=== PATIENT | female | born 1960 | race Two or more races ===

== ENCOUNTER 2017-05-15 15:14 | Emergency (ER) | payer OTHER ==
--- NOTE | 2017-05-15 15:35 | EDPHY ---
HPI/HX/ROS/PE/MDM Narrative: CHIEF COMPLAINT: Headache HPI: The patient is a 57 y/o female complaining of a consistent headache for 2 months. She saw her primary care provider, Dr. Worley, in [place] regarding the headache, but only had blood work performed. The headache has been consistent every day, but she occasionally wakes up without a headache. However, as the day progresses the headache returns and worsens. It also migrates between the right and left side of her head. Took Excedrin, ibuprofen, and aspirin without any relief. She has not taken any prescription medications for her headache. Denies vision changes, weakness or numbness in extremities, or other pertinent symptoms. REVIEW OF SYSTEMS: Aside from elements discussed in the HPI, a comprehensive 10-point review of systems was reviewed and is negative. PMH: Denies SOCIAL HISTORY: Lives in [place], works as a contracts paralegal, PHYSICAL EXAM: General:Patient is alert, in no acute distress. ENT:Eyes are normal to inspection. ENT inspection normal. Neck: Normal inspection. Full range of motion. Respiratory:No respiratory distress. Breath sounds normal bilaterally. Cardiovascular: Regular rate and rhythm. Strong peripheral pulses. Normal cap refill. Abdomen:The abdomen is nontender to palpation. There are no peritoneal signs. There are normal bowel sounds. Back: Normal to inspection. No tenderness to palpation. Skin: Normal color. No rash. Warm and dry. Extremities: Normal appearance. Full range of motion. Neuro: Oriented x3. Normal motor function. Normal sensory function. No pronator drift. ED Course: 1638: Spoke with Dr. Pedro, radiologist, he reports the patient has a negative head CT. 1639: Reassessed patient and discussed imaging findings. Patient is now asymptomatic after treatment with IVNS, Reglan, Benadryl and Toradol. Neuro exam remains normal. The etiology of her headaches is unclear, but patient is safe for further outpatient workup. Return precautions provided; patient is comfortable with this plan. MDM: This patient presents with intermittent headache over the last two months. There is no description of sudden onset or severity to suggest SAH. She has no infectious symptoms to suggest meningitis. A CTH was performed and is negative for CVA, tumor, bleed. I think the patient is safe for further outpatient workup and she is comfortable with this plan. She got significant relief from anti-migraine meds here in the ED. We discussed strict return precautions. - Data Points Imaging: Discussed imaging studies w/ connie cleaner Radiologist, I viewed and interpreted images myself Laboratory Results: Laboratory Results 05/15/17 15:50 05/15/17 15:50 05/15/17 05/15/17 15:50 15:50 WBC 6.24 10^3/uL 10^3/uL (3.80-9.50) RBC 5.95 10^6/uL H 10^6/uL (4.18-5.33) Hgb 13.3 g/dL g/dL (12.6-16.3) Hct 42.0 % % (38.0-47.0) MCV 70.6 fL L fL (81.5-99.8) MCH 22.4 pg L pg (27.9-34.1) MCHC 31.7 g/dL L g/dL (32.4-36.7) RDW 17.6 % H % (11.5-15.2) Plt Count 273 10^3/uL 10^3/uL (150-400) MPV 11.2 fL fL (8.7-11.7) Neut % (Auto) 54.3 % % (39.3-74.2) Lymph % (Auto) 37.2 % % (15.0-45.0) [place] % (Auto) 5.0 % % (4.5-13.0) Eos % (Auto) 2.4 % % (0.6-7.6) Baso % (Auto) 0.8 % % (0.3-1.7) Nucleat RBC Rel Count 0.0 % % (0.0-0.2) Absolute Neuts (auto) 3.39 10^3/uL 10^3/uL (1.70-6.50) Absolute Lymphs (auto) 2.32 10^3/uL 10^3/uL (1.00-3.00) Absolute Monos (auto) 0.31 10^3/uL 10^3/uL (0.30-0.80) Absolute Eos (auto) 0.15 10^3/uL 10^3/uL (0.03-0.40) Absolute Basos (auto) 0.05 10^3/uL 10^3/uL (0.02-0.10) Absolute Nucleated RBC 0.00 10^3/uL 10^3/uL (0-0.01) Immature Gran % 0.3 % % (0.0-1.1) Immature Gran # 0.02 10^3/uL 10^3/uL (0.00-0.10) Sodium 141 mEq/L mEq/L (134-144) Potassium 4.0 mEq/L mEq/L (3.5-5.2) Chloride 103 mEq/L mEq/L (97-110) Carbon Dioxide 24 mEq/l mEq/l (22-31) Anion Gap 14 mEq/L mEq/L (8-16) BUN 19 mg/dL mg/dL (7-23) Creatinine 0.8 mg/dL mg/dL (0.6-1.0) Estimated GFR > 60 Glucose 106 mg/dL H mg/dL (70-100) Calcium 10.1 mg/dL mg/dL (8.5-10.4) Medications Given: Discontinued Medications Diphenhydramine HCl (Benadryl Injection) 25 mg IVP EDNOW ONE Stop: 05/15/17 15:42 Last Admin: 05/15/17 15:57 Dose: 25 mg Sodium Chloride (Ns) 1,000 mls @ 0 mls/hr IV ONCE ONE; Wide Open PRN Reason: Protocol Stop: 05/15/17 15:42 Last Admin: 05/15/17 15:56 Dose: 1,000 mls Ketorolac Tromethamine (Toradol) 30 mg IVP EDNOW ONE Stop: 05/15/17 15:42 Last Admin: 05/15/17 15:56 Dose: 30 mg Metoclopramide HCl (Reglan Injection) 10 mg IVP EDNOW ONE Stop: 05/15/17 15:42 Last Admin: 05/15/17 15:57 Dose: 10 mg General Time Seen by Provider: 05/15/17 15:33 Initial Vital Signs: Initial Vital Signs Temperature (C) 36.8 C 05/15/17 15:25 Heart Rate 95 05/15/17 15:25 Respiratory Rate 20 05/15/17 15:25 Blood Pressure 148/86 H 05/15/17 15:25 O2 Sat (%) 99 05/15/17 15:25 O2 Delivery Mode Room Air Allergies/Adverse Reactions: erythromycin base Allergy (Verified 05/15/17 15:24) Home Medications: Medication Instructions Recorded NK [No Known Home Meds] 05/15/17 Departure - Departure Disposition: Home, Routine, Self-Care Clinical Impression: Headache Condition: Good Instructions: Acute Headache (ED), General Headache (ED) Additional Instructions: 1. Follow-up with your primary care physician within 72 hours. 2. Return to the emergency department immediately for recurrence of headache, nausea, vomiting, numbness, weakness, neck pain, fever or other concerns. 3. Use Tylenol and/or ibuprofen as directed. Referrals: ELIUD WORLEY [Other] - As per Instructions Report Scribed for: lEliott Shrestha Report Scribed by: Nancy Peña Date of Report: 05/15/17 Time of Report: 15:35 Physician Review and Approval Statement: Portions of this note were transcribed by an ED scribe. I personally performed the history, physical exam, and medical decision making; and confirm the accuracy of the information in the transcribed note.
[2017-05-15] MEDS ORDERED: NS 1,000 ML IV ONE (15:41)
[2017-05-15] MEDS ORDERED: KETOROLAC 30 MG/1 ML SDV IVP ONE (15:41)
[2017-05-15] MEDS ORDERED: METOCLOPRAMIDE 10 MG/2 ML VIAL IVP ONE (15:41)
[2017-05-15 15:59] LABS: % IMMATURE GRANULYOCYTES 0.3 % (0.0-1.1); ABSOLUTE IMMATURE GRANULOCYTES 0.02 10^3/uL (0.00-0.10); ADD DIFF? NO; ADD MORPH? NO; ADD SCAN? NO; ATYPICAL LYMPHOCYTE FLAG 10 (0-99); FRAGMENT RBC FLAG 40 (0-99); HEMOGLOBIN 13.3 g/dL (12.6-16.3); LEFT SHIFT FLG 0 (0-99); LIPEMIA HEMOLYSIS FLAG 80 (0-99); MEAN CELL HEMOGLOBIN 22.4 pg (27.9-34.1); MEAN CELL HEMOGLOBIN CONCENTR. 31.7 g/dL (32.4-36.7); MEAN CELL VOLUME 70.6 fL (81.5-99.8); MEAN PLATELET VOLUME 11.2 fL (8.7-11.7); PLATELET CLUMPS FLAG 0 (0-99); PLATELET COUNT 273 10^3/uL (150-400); RED BLOOD CELL COUNT 5.95 10^6/uL (4.18-5.33); RED CELL DISTRIBUTION WIDTH 17.6 % (11.5-15.2)
[2017-05-15 16:17] LABS: ANION GAP 14 mEq/L (8-16); CALCIUM 10.1 mg/dL (8.5-10.4); CARBON DIOXIDE 24 mEq/l (22-31); CHLORIDE 103 mEq/L (97-110); CREATININE 0.8 mg/dL (0.6-1.0); GLOMERULAR FILTRATION RATE > 60; GLUCOSE 106 mg/dL (70-100); SODIUM 141 mEq/L (134-144)
[2017-05-15 17:41] VITALS: BP 135/98; PULSE 78; RESP 18; TEMP 98.4; O2SAT 95
== END 2017-05-15 17:38 | disposition home or self-care (01) ==
PROC: 3E0337Z Introduction of Electrolytic and Water Balance Substance into Peripheral Vein, Percutaneous Approach (ICD-10-PCS; principal; 2017-05-15)
DX: R51 Headache (principal); E86.9 Volume depletion, unspecified
CPT/HCPCS: 96374; J1200; J1885; J2765